=== PATIENT | female | born 1950 | race African-American/Black ===

== ENCOUNTER 2018-09-24 05:57 | Day surgery (SDC) | payer OTHER ==
[2018-09-22 11:45] VITALS: BMI 30.4
[2018-09-24] MEDS ORDERED: MIDAZOLAM HCL 2 MG/2 ML SINGLE DOSE VIAL ONE (07:03)
[2018-09-24] MEDS ORDERED: PROPOFOL 20 ML ONE (07:03)
[2018-09-24] MEDS ORDERED: SUCCINYLCHOLINE CHLORIDE 200 MG/10 ML VIAL ONE (07:03)
[2018-09-24] MEDS ORDERED: BUPIVACAINE HCL/PF 2.5 MG/ML - 30 ML VIAL IJ ONE (07:07)
[2018-09-24] MEDS ORDERED: EPINEPHrine 1:1,000 1 MG/1 ML - 30ML VIAL (INJECTION) ONE (07:08)
[2018-09-24] MEDS ORDERED: ONDANSETRON 4 MG/2 ML VIAL ONE (07:58)
[2018-09-24] MEDS ORDERED: DEXAMETHASONE SOD PHOSPHATE 4 MG/1 ML VIAL ONE (07:58)
[2018-09-24] MEDS ORDERED: BUPIVACAINE HCL/PF 0.25% (2.5MG/ML) 10 ML VIAL IJ ONE (08:24)
[2018-09-24] MEDS ORDERED: oxyCODONE HCL 5 MG TABLET PO PRN (08:43)
[2018-09-24] MEDS ORDERED: ONDANSETRON 4 MG/2 ML VIAL IVPUSH PRN (08:43)
[2018-09-24] MEDS ORDERED: LACTATED RINGERS SOLUTION 1,000 ML IV SCH (08:45)
[2018-09-24 10:14] VITALS: TEMP 98.1
--- NOTE | 2018-09-24 10:30 | OP ---
DATE OF OPERATION: 09/24/2018 SURGEON: Reyes Justice MD ASSISSTANT: JUAN R Quiros PREOPERATIVE DIAGNOSIS: 1. Left knee medial and lateral meniscal tears. 2. Left knee cartilage injury. 3. Left knee synovitis. POSTOPERATIVE DIAGNOSIS: 1. Left knee medial and lateral meniscal tears. 2. Left knee cartilage injury. 3. Left knee synovitis. PROCEDURE: 1. Left knee arthroscopy with partial meniscectomies of medial and lateral meniscus (CPT code 60315). 2. Left knee arthroscopy with chondroplasty and abrasoplasty (CPT code 13092). . 3. Left knee arthroscopy with synovectomy (CPT code 40164). FINDINGS: 1. Medial meniscus body and posterior horn tear, posterior 1/3, inner 3rd portion.. 2. Lateral meniscus separate anterior horn, posterior horn, and central body tear. 3. Synovitis, patellofemoral, medial, lateral, and notch area with posterior medial 2 cm x 1 cm grade 3-4 changes and diffuse grade 1-2 changes. 4. ACL and PCL intact. 5. Grade 1-2 changes lateral joint line. 6. Central grade 2 cartilage injury patella with grade 2-3 change patellofemoral trochlea and antegrade 4 changes anterior, medial, patellofemoral, and trochlea. DESCRIPTION OF PROCEDURE: Informed consent was obtained. The patient came to the operating room, where the lower extremity was prepped and draped in a sterile fashion. A tourniquet was placed on the upper thigh, but not inflated. Using standard arthroscopic technique, a lateral incision and portal was made to allow for introduction of the camera into the suprapatellar bursa. This was then taken to the medial joint line, where under direct visualization, a medial incision and portal was made. Excessive synovium noted in the medial, lateral and patellofemoral and notch area was removed by an upbiter, shaver and Bovie cautery. This was found to bring in inflammatory tissue into the joint surface, a source of pain and dysfunction. Probing of the medial and lateral meniscus found tears, as described in the findings. These were removed with the upbiter and shaver and taken back to a stable rim. Grade 2 to 3 degenerative changes were treated with a chondroplasty, removing all flaking surfaces with low-setting Bovie along the periphery to prevent further flaking. Grade 4 changes, as noted, were treated with an abrasoplasty, creating a bleeding surface at the bone/cartilage interface. Aggressive debridement with shaver/harpal created bleeding surface. Micro fracture also done when indicated in findings. All areas of the knee were once again reexamined. The knee was then drained and a single suture was placed in all portals. A sterile dressing was placed and the patient was transferred to the recovery room without complication. The PA listed above was present and assisted at surgery. Their presence was absolutely medically necessary for the completion of the procedure. They helped hold the arthroscopy, pass instruments (and implants when indicated) and the procedure could not have been completed without their assistance. REYES JUSTICE M.D. [id number]
[2018-09-24 10:47] VITALS: BP 110/74; PULSE 72
--- NOTE | 2018-09-30 14:53 | PATH ---
Surgical Pathology Report Patient Name: [facility]. Rec. #: [id number] /Age/Gender: 1950 (Age: 68) / F Account: [id number] Location: [facility] Taken: 09/24/2018 Received: 09/24/2018 Reported: 09/30/2018 Physicians: Reyes Peralta M.D. Specimen(s) Received LEFT KNEE SHAVING Clinical History Left knee internal derangement Final Diagnosis LEFT KNEE SHAVINGS: FRAGMENTS OF SYNOVIAL TISSUE WITH FOCAL FIBROSIS. SEPARATE CARTILAGINOUS TISSUE WITH DEGENERATIVE CHANGE. Electronically Signed Betsy Ascencio M.D. Gross Description Received in formalin, labeled "left knee shavings," is a 4.0 x 4.0 x 0.4 cm. aggregate of whitaker-yellow soft tissue fragments. A sales representative sales manager portion is submitted in one cassette. /09/28/201809/28/2018
== END 2018-09-24 10:50 | disposition home or self-care (01) ==
LOC: FASU 05:57
PROVIDERS: ATTEND Orthopaedic Surgery
PROC: 0SBD4ZZ Excision of Left Knee Joint, Percutaneous Endoscopic Approach (ICD-10-PCS; 2018-09-24)
PROC: 0SBD4ZZ Excision of Left Knee Joint, Percutaneous Endoscopic Approach (ICD-10-PCS; 2018-09-24)
PROC: 0SBD4ZZ Excision of Left Knee Joint, Percutaneous Endoscopic Approach (ICD-10-PCS; principal; 2018-09-24 07:30)
DX: S83.242A Other tear of medial meniscus, current injury, left knee, initial encounter (principal); S83.282A Other tear of lateral meniscus, current injury, left knee, initial encounter; S83.8X2A Sprain of other specified parts of left knee, initial encounter; M65.862 Other synovitis and tenosynovitis, left lower leg; X58.XXXA Exposure to other specified factors, initial encounter; Y93.9 Activity, unspecified; Y92.9 Unspecified place or not applicable
CPT/HCPCS: 82962; 88304-TC; 94760